=== PATIENT | female | born 1940 | race Caucasian/White ===

== ENCOUNTER → 2017-04-04 | Outpatient (CLI) | payer MEDICARE, OTHER ==
[~2017-04-04] MED LIST: ACTOS15 MG PO; BAYER ASPIRIN C81 MG PO; FLUOXETINE40 MG PO; GLYBURIDE MICRON3 MG PO; LIPITOR40 M1 PO; QUINAPRIL40 MG OR; TEKTURNA HCT 151 TAB PO
--- NOTE | 2017-04-04 15:38 | RADIOLOGY REPORT PS360 ---
CT HEAD W/O CONTRAST HISTORY: Confusion, altered level of consciousness, disorientation, altered mental status CONFUSION AND DISORIENTATION ORDERING PHYSICIAN: Macarena Mccarty APRN PATIENT AGE: 76 years COMPARISON: None TECHNIQUE: Axial images obtained without contrast. Brain and bone windows reviewed. FINDINGS: No midline shift, mass effect, intracranial hemorrhage, hydrocephalus, or extra-axial fluid collection is evident. There is generalized atrophy with hypoattenuation in the periventricular region consistent with ischemic gliotic change from microvascular disease. Incidental note made of calcification of the falx anteriorly The calvarium has an unremarkable appearance. No mastoid effusion. The visualized paranasal sinuses are unremarkable. Soft tissue density is present in both external auditory canals and could be due to cerumen or foreign bodies within the or canal. IMPRESSION: No acute intracranial findings.
== END ==
LOC: RAD 13:40
DX: F99 Mental disorder, not otherwise specified (principal); G31.84 Mild cognitive impairment of uncertain or unknown etiology